=== PATIENT | male | born 2000 | race Caucasian/White ===

== ENCOUNTER 2020-07-10 18:43 | Emergency (ER) | payer SELFPAY ==
--- NOTE | 2020-07-10 20:26 | ER ---
HPI: A 19-year-old male here with complaints of a nosebleed that started almost an hour ago. He tells me the last couple of weeks he has had a nosebleed every 2 or 3 days, usually it is just a few drops, today it became more. He started out by holding pressure to the bridge of his nose and then he packed the right naris which is the involved naris with some tissue. He does not feel that it is actively bleeding at this time. The patient denies any injury to the nose and prior to 2 weeks or so back he has not had any history of nosebleeds. The patient states he is otherwise healthy. He is not on any medications or blood thinners. OBJECTIVE: GENERAL APPEARANCE: The patient is awake and alert. No obvious distress. He is currently wearing a mask. I had him remove the mask and will while doing this. He also removed the packing to the right naris. He has some blood on his nose and around both naris openings, but tells me that the right side is the only side has been bleeding. Evaluation of the right naris reveals irritation along the Kiesselbach's plexus area. There is no active bleeding at this time and there is no other sign of abnormality inside the right naris. DIAGNOSIS: Epistaxis to right naris, currently controlled. TREATMENT PLAN: I advised the patient that he should be using Vaseline, coating it on a Q- tip and gently rolling it on the inside of the right naris to coat the area. He should do this once a day for about a week. If he develops any further nosebleeds, he can pack the right naris like he already did earlier today which was successful. I asked him if he wanted me to pack it with some Nu Gauze for a couple of days and he declined. I also advised the patient not to blow, pick, or rub his nose to keep any kind of small trauma from creating an another nosebleed. If his symptoms persist, recheck is as needed. CRS/MODL /[id number]
== END 2020-07-10 18:55 | disposition home or self-care (01) ==
LOC: LB.ED 18:43
DX: R04.0 Epistaxis (principal)
CPT/HCPCS: 99282; 99283